=== PATIENT | female | born 1975 | race Caucasian/White ===

== ENCOUNTER 2020-07-20 19:49 | Emergency (ER) | payer BC, SELFPAY ==
--- OUTSIDE RECORDS SUMMARY | 2020-07-20 19:51 | XMS REPORT | Continuity of Care Document ---
:1975 Author Organization [facility] t Address [address] [place] [address] Dr. Stark [address] [place] [id number] Care Team Providers Name Role Phone Unavailable Unavailable Unavailable Problems This patient has no known problems. Allergies, Adverse Reactions, Alerts This patient has no known allergies or adverse reactions. Medications This patient has no known medications. Procedures This patient has no known procedures. Results This patient has no known results.
[2020-07-20] MEDS ORDERED: HYDROCODONE/APAP 5/325 MG TAB ONE (20:47)
[2020-07-20] MEDS ORDERED: TETANUS & DIPHTHERIA TOX,ADULT 0.5 ML VIAL ONE (20:48)
[2020-07-20] MEDS ORDERED: LIDOCAINE 1% MPF 30 ML VIAL ONE (20:48)
--- NOTE | 2020-07-20 21:41 | RAD REPORT ---
EXAM DESCRIPTION: RAD - Knee Left 3 View - 07/20/2020 9:29 pm CLINICAL HISTORY: SMASH INJURY Laceration, pain COMPARISON: No comparisons FINDINGS: No fracture or joint effusion. Tiny radiopaque foreign body is seen in the soft tissues an terior to the patellar tendon.
--- NOTE | 2020-07-20 21:42 | RAD REPORT ---
EXAM DESCRIPTION: RAD - Hand Right 2 View - 07/20/2020 9:29 pm CLINICAL HISTORY: SMASH INJURY Fall, pain COMPARISON: No comparisons FINDINGS: Hardware is in place spanning the fifth metacarpal. Soft tissue swelling is seen along the base of the thumb with multiple radiodensity is noted within the soft tissues, likely small foreign bodies.
--- NOTE | 2020-07-20 23:09 | EDPHYS ---
Physician Documentation [facility] Name: Tanya Stein Age: 44 yrs Sex: Female : 1975 Arrival Date: 07/20/2020 Time: 19:54 Bed 24 Private MD: ED Physician Laureano Duncan HPI: 07/20 20:48 This 44 yrs old Female presents to ER via EMS with complaints of Fall Injury. snw 20:48 Details of fall: The patient fell from an upright position, pt was walking around a snw corner at [place], there was a broken bottle of olive oil on the floor, pt slipped in the oil, left knee bent behind her at an odd angle, pt landed mostly on right hand and landed on pieces of the broken glass, punctures and lacerations to right hand. Onset: The symptoms/episode began/occurred suddenly, just prior to arrival. Associated injuries: The patient sustained as noted. Severity of symptoms: At their worst the symptoms were moderate. The patient has not experienced similar symptoms in the past. It is unknown whether or not the patient has recently seen a physician. 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 - Social history:: Smoking status: unknown. - Immunization history: Last tetanus immunization:. ROS: 20:44 Constitutional: Negative for fever, chills, and weight loss, Eyes: Negative for injury, snw pain, redness, and discharge, ENT: Negative for injury, pain, and discharge, Neck: Negative for injury, pain, and swelling, Cardiovascular: Negative for chest pain, palpitations, and edema, Respiratory: Negative for shortness of breath, cough, wheezing, and pleuritic chest pain, Abdomen/GI: Negative for abdominal pain, nausea, vomiting, diarrhea, and constipation, Back: Negative for injury and pain, : Negative for injury, bleeding, discharge, and swelling, Neuro: Negative for headache, weakness, numbness, tingling, and seizure, Psych: Negative for depression, anxiety, suicide ideation, homicidal ideation, and hallucinations. 20:44 MS/extremity: Positive for injury or acute deformity, pain, of the left knee. 20:44 Skin: Positive for laceration(s), puncture, pustules, of the heel of right hand. Exam: 20:42 Constitutional: This is a well developed, well nourished patient who is awake, alert, snw and in no acute distress. Head/Face: Normocephalic, atraumatic. Eyes: Pupils equal round and reactive to light, extra-ocular motions intact. Lids and lashes normal. Conjunctiva and sclera are non-icteric and not injected. Cornea within normal limits. Periorbital areas with no swelling, redness, or edema. ENT: Nares patent. No nasal discharge, no septal abnormalities noted. Tympanic membranes are normal and external auditory canals are clear. Oropharynx with no redness, swelling, or masses, exudates, or evidence of obstruction, uvula midline. Mucous membranes moist. Neck: Trachea midline, no thyromegaly or masses palpated, and no cervical lymphadenopathy. Supple, full range of motion without nuchal rigidity, or vertebral point tenderness. No Meningismus. Chest/axilla: Normal chest wall appearance and motion. Nontender with no deformity. No lesions are appreciated. Cardiovascular: Regular rate and rhythm with a normal S1 and S2. No gallops, murmurs, or rubs. Normal PMI, no JVD. No pulse deficits. Respiratory: Lungs have equal breath sounds bilaterally, clear to auscultation and percussion. No rales, rhonchi or wheezes noted. No increased work of breathing, no retractions or nasal flaring. Abdomen/GI: Soft, non-tender, with normal bowel sounds. No distension or tympany. No guarding or rebound. No evidence of tenderness throughout. Back: No spinal tenderness. No costovertebral tenderness. Full range of motion. Neuro: Awake and alert, GCS 15, oriented to person, place, time, and situation. Cranial nerves II-XII grossly intact. Motor strength 5/5 in all extremities. Sensory grossly intact. Cerebellar exam normal. Normal gait. Psych: Awake, alert, with orientation to person, place and time. Behavior, mood, and affect are within normal limits. 20:42 Skin: Appearance: normal except for affected area, injury, laceration(s), the wound is approximately 2 cm(s), with a depth of 2 cm(s), of the heel of right hand, puncture(s). 20:46 Musculoskeletal/extremity: Extremities: grossly normal except: noted in the left knee: snw decreased ROM, swelling, tenderness, ROM: limited active range of motion due to pain, in the left knee, Circulation is intact in all extremities. Sensation intact. Vital Signs: 19:55 BP 116 / 77; Pulse 65; Resp 16; Temp 98.0(O); Pulse Ox 100% on R/A; Weight 79.38 kg; ls4 Height 5 ft. 4 in. (162.56 cm); Pain 7/10; 23:01 BP 102 / 72; Pulse 59; Resp 16; Temp 98.4; Pulse Ox 100% on R/A; Pain 3/10; ls4 19:55 Body Mass Index 30.04 (79.38 kg, 162.56 cm) ls4 [place] Coma Score: 20:46 Eye Response: spontaneous(4). Verbal Response: oriented(5). Motor Response: obeys snw commands(6). Total: 15. Laceration: 22:22 Wound Repair of 2cm ( 0.8in ) subcutaneous laceration to right hand. Irregularly snw shaped.. Gross contamination.. Possible foreign body or glass noted.. right heel of hand with large glass fragments, palm with innumerable tiny lacerations with slivers of glass. Attempted to remove all glass post anesthesia to heel of hand with 1% lidocaine. Many glass fragments removed. X-ray repeated.. Distal neuro/vascular/tendon intact. Anesthesia: Local anesthetic administered with 5 mls of 1% lidocaine. Wound prep: Extensive cleansing with hibiclenz by nurse by pr. Skin closed with 3 4-0 Prolene using simple sutures and sterile technique. Dressed with Kerlix, non-adherent dressing. Patient tolerated well. MDM: 20:06 Patient medically screened. snw 23:11 Data reviewed: vital signs, nurses notes. Data interpreted: Pulse oximetry: on room air snw is 100 %. Interpretation: normal. Counseling: I had a detailed discussion with the patient and/or guardian regarding: the historical points, exam findings, and any diagnostic results supporting the discharge/admit diagnosis, radiology results, the need for outpatient follow up, for definitive care, to return to the emergency department if symptoms worsen or persist or if there are any questions or concerns that arise at home. Special discussion: Based on the history and exam findings, there is no indication for further emergent testing or inpatient evaluation. I discussed with the patient/guardian the need to see the orthopedic surgeon for further evaluation of the symptoms. I discussed with the patient/guardian the need to see the primary care provider for further evaluation of the symptoms. 07/20 20:24 Order name: Hand Right 2 View XRAY; Complete Time: 22:15 snw 07/20 20:24 Order name: Knee Left 3 View XRAY; Complete Time: 22:15 snw 07/20 22:12 Order name: Hand Right 2 View XRAY ls4 07/20 20:24 Order name: Suture Tray Setup; Complete Time: 20:48 snw 07/20 20:24 Order name: Wound Care: soak in hibiclens/water; Complete Time: 20:34 snw Administered Medications: 20:48 Drug: [place] 5 mg-325 mg 1 tabs Route: PO; ls4 21:10 Follow up: Response: No adverse reaction; Marked relief of symptoms ls4 21:33 Follow up: Response: No adverse reaction; Marked relief of symptoms ls4 21:19 Drug: Tetanus-Diphtheria Toxoid Adult 0.5 ml {[employer] Leader: [employer]. Exp: ls4 01/13/2023. Lot #: [id number]. } Route: IM; Site: right deltoid; 21:49 Follow up: Response: No adverse reaction ls4 21:32 Drug: Lidocaine (1 %) 1 vials {Note: PER JERRY .} Volume: 20 ml; Route: Infiltration; ls4 Disposition: 07/21 06:14 Co-signature as Attending Physician, Laureano Duncan MD I agree with the assessment and luz maria plan of care. Disposition: 07/20/20 23:09 Discharged to Home. Impression: Fall on same level from slipping, tripping and stumbling with subsequent striking against sharp object, Laceration with foreign body of right hand, Sprain of unspecified site of left knee. - Condition is Stable. - Discharge Instructions: Fall Prevention in the Home, Knee Sprain, Laceration Care, Adult, Suture Removal, Care After, Sutured Wound Care. - Prescriptions for Keflex 500 mg Oral Capsule - take 1 capsule by ORAL route every 8 hours for 10 days; 30 capsule. Tylenol- Codeine #3 300-30 mg Oral Tablet - take 2 tablets by ORAL route every 6 hours As needed; 24 tablet. - Medication Reconciliation Form, Thank You Letter, Antibiotic Education, Prescription Opioid Use form. - Follow up: Emergency Department; When: As needed; Reason: Worsening of condition. Follow up: Private Physician; When: 7 - 10 days; Reason: Recheck today's complaints, Continuance of care, Re-evaluation by your physician. Signatures: Dispatcher [employer] EDLaureano Alva MD MD cha Waters, Shelly, PREPARED FOODS SUPERVISOR-C PREPARED FOODS SUPERVISOR-Csnw Shyla Brown RN RN ls4 Corrections: (The following items were deleted from the chart) 07/20 20:48 20:42 Constitutional: This is a well developed, well nourished patient who is awake, snw alert, and in no acute distress. Head/Face: Normocephalic, atraumatic. Eyes: Pupils equal round and reactive to light, extra-ocular motions intact. Lids and lashes normal. Conjunctiva and sclera are non-icteric and not injected. Cornea within normal limits. Periorbital areas with no swelling, redness, or edema. ENT: Nares patent. No nasal discharge, no septal abnormalities noted. Tympanic membranes are normal and external auditory canals are clear. Oropharynx with no redness, swelling, or masses, exudates, or evidence of obstruction, uvula midline. Mucous membranes moist. Neck: Trachea midline, no thyromegaly or masses palpated, and no cervical lymphadenopathy. Supple, full range of motion without nuchal rigidity, or vertebral point tenderness. No Meningismus. Chest/axilla: Normal chest wall appearance and motion. Nontender with no deformity. No lesions are appreciated. Cardiovascular: Regular rate and rhythm with a normal S1 and S2. No gallops, murmurs, or rubs. Normal PMI, no JVD. No pulse deficits. Respiratory: Lungs have equal breath sounds bilaterally, clear to auscultation and percussion. No rales, rhonchi or wheezes noted. No increased work of breathing, no retractions or nasal flaring. Abdomen/GI: Soft, non-tender, with normal bowel sounds. No distension or tympany. No guarding or rebound. No evidence of tenderness throughout. Back: No spinal tenderness. No costovertebral tenderness. Full range of motion. Neuro: Awake and alert, GCS 15, oriented to person, place, time, and situation. Cranial nerves II-XII grossly intact. Motor strength 5/5 in all extremities. Sensory grossly intact. Cerebellar exam normal. Normal gait. Psych: Awake, alert, with orientation to person, place and time. Behavior, mood, and affect are within normal limits. snw 20:48 20:42 Skin: Appearance: snw snw 21:46 19:54 Immunization history Last tetanus immunization: ls4 ls4 21:46 21:44 Social history: Smoking status: unknown ls4 ls4 23:31 23:09 07/20/2020 23:09 Discharged to Home. Impression: Fall on same level from ls4 slipping, tripping and stumbling with subsequent striking against sharp object; Laceration with foreign body of right hand; Sprain of unspecified site of left knee. Condition is Stable. Forms are Medication Reconciliation Form, Thank You Letter, Antibiotic Education, Prescription Opioid Use. Follow up: Emergency Department; When: As needed; Reason: Worsening of condition. Follow up: Private Physician; When: 7 - 10 days; Reason: Recheck today's complaints, Continuance of care, Re-evaluation by your physician. snw
--- NOTE | 2020-07-20 23:09 | ER ---
Nurse's Notes [facility] Name: Tanya Stein Age: 44 yrs Sex: Female : 1975 Arrival Date: 07/20/2020 Time: 19:54 Bed 24 Private MD: Diagnosis: Fall on same level from slipping, tripping and stumbling with subsequent striking against sharp object;Laceration with foreign body of right hand;Sprain of unspecified site of left knee Presentation: 07/20 19:54 Chief complaint: Patient states: FELL AT [place] IN [place] OIL AND BROKEN GLASS. GLASS AND ls4 LACS TO RIGHT HAND AND PAIN IN LEFT KNEE. Care prior to arrival: None. Mechanism of Injury: Fall an unknown distance. 19:54 Acuity: AYDEN 3 ls4 19:54 Method Of Arrival: EMS: [facility] ls4 19:54 Coronavirus screen: At this time, the client does not indicate any symptoms associated ls4 with coronavirus-19. Ebola Screen: No symptoms or risks identified at this time. Initial Sepsis Screen: Does the patient meet any 2 criteria? No. Patient's initial sepsis screen is negative. Does the patient have a suspected source of infection? No. Patient's initial sepsis screen is negative. Risk Assessment: Do you want to hurt yourself or someone else? Patient reports no desire to harm self or others. Onset of symptoms was July 20, 2020 at 18:45. Triage Assessment: 20:29 General: Appears uncomfortable, Behavior is calm, cooperative. 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 - Social history:: Smoking status: unknown. - Immunization history: Last tetanus immunization:. Screenin:31 Abuse screen: Denies threats or abuse. Denies injuries from another. Nutritional ls4 screening: No deficits noted. Tuberculosis screening: No symptoms or risk factors identified. Fall Risk None identified. Assessment: 19:54 General: Appears uncomfortable. Pain: Complains of pain in right hand Pain currently is ls4 8 out of 10 on a pain scale. 20:33 Derm: Wound noted heel of right hand, palm of right hand and Right first web space ls4 Wound is JAGGED, GLASS PROTRUDING. Musculoskeletal: Circulation, motion, and sensation intact. Capillary refill < 3 seconds, Range of motion: intact in all extremities. 21:30 Reassessment: Patient appears in no apparent distress at this time. Patient and/or ls4 family updated on plan of care and expected duration. Pain level reassessed. Patient is alert, oriented x 3, equal unlabored respirations, skin warm/dry/pink. 23:03 Reassessment: Patient appears in no apparent distress at this time. Patient and/or ls4 family updated on plan of care and expected duration. Pain level reassessed. Patient is alert, oriented x 3, equal unlabored respirations, skin warm/dry/pink. Vital Signs: 19:55 BP 116 / 77; Pulse 65; Resp 16; Temp 98.0(O); Pulse Ox 100% on R/A; Weight 79.38 kg; ls4 Height 5 ft. 4 in. (162.56 cm); Pain 7/10; 23:01 BP 102 / 72; Pulse 59; Resp 16; Temp 98.4; Pulse Ox 100% on R/A; Pain 3/10; ls4 19:55 Body Mass Index 30.04 (79.38 kg, 162.56 cm) ls4 [place] Coma Score: 20:46 Eye Response: spontaneous(4). Verbal Response: oriented(5). Motor Response: obeys snw commands(6). Total: 15. ED Course: 19:54 Patient arrived in ED. iw 19:59 Jerry Martinez FNP-C is [facility]. snw 19:59 Laureano Duncan MD is Attending Physician. snw 20:20 Patient did not have IV access during this emergency room visit. Wound care: to ls4 laceration located on Right first web space and palm of right hand and heel of right hand was cleaned with Hibiclens, soaked in normal saline solution, Patient tolerated well. 20:26 Shyla Brown, RN is Primary Nurse. ls4 20:28 Triage completed. ls4 20:31 Arm band placed on. ls4 20:31 Patient has correct armband on for positive identification. Bed in low position. Call ls4 light in reach. Side rails up X 1. security monitor on. Pulse ox on. NIBP on. Warm blanket given. Verbal reassurance given. 21:29 Hand Right 2 View XRAY In Process Unspecified. EDMS 21:29 Knee Left 3 View XRAY In Process Unspecified. EDMS 22:50 Hand Right 2 View XRAY In Process Unspecified. EDMS 23:03 Assist provider with I \T\ D: Dressing with 4X4s, Patient tolerated Assist provider with ls4 laceration repair on palm of right hand and heel of right hand using sutures. Set up tray. Performed by Jerry MONTALVO Patient tolerated well. 23:30 Dressings: Kerlix X 1; right hand Jyoti x 1 right hand non-adherent dressing x 1 right ls4 hand triple antibiotic. Administered Medications: 20:48 Drug: [place] 5 mg-325 mg 1 tabs Route: PO; ls4 21:10 Follow up: Response: No adverse reaction; Marked relief of symptoms ls4 21:33 Follow up: Response: No adverse reaction; Marked relief of symptoms ls4 21:19 Drug: Tetanus-Diphtheria Toxoid Adult 0.5 ml {S[employer] Boss: [employer]. Exp: ls4 01/13/2023. Lot #: [id number]. } Route: IM; Site: right deltoid; 21:49 Follow up: Response: No adverse reaction ls4 21:32 Drug: Lidocaine (1 %) 1 vials {Note: PER JERRY .} Volume: 20 ml; Route: Infiltration; ls4 Outcome: 23:09 Discharge ordered by MD. pham 23:30 Discharged to home ambulatory. ls4 23:30 Condition: good 23:30 Discharge instructions given to patient, Instructed on discharge instructions, follow up and referral plans. medication usage, safety practices, Demonstrated understanding of instructions, follow-up care, medications, Prescriptions given X 2. 23:31 Patient left the ED. ls4 Signatures: Dispatcher [employer] Jerry Franz FNP-C FNP-Jaymew Norma Evans, RN RN iw Shyla Brown RN RN ls4 Corrections: (The following items were deleted from the chart) 19:54 Immunization history Last tetanus immunization: ls4 ls4 21:44 Social history: Smoking status: unknown ls4 ls4 23:15 20:20 No provider procedures requiring assistance completed. ls4 ls4
--- NOTE | 2020-07-21 08:03 | RAD REPORT ---
EXAM DESCRIPTION: RAD - Hand Right 2 View - 07/20/2020 10:50 pm CLINICAL HISTORY: SMASH INJURYsoft tissue foreign bodies COMPARISON: Hand Right 2 View dated 07/20/2020 FINDINGS: No new bone finding seen. Foreign bodies or skin contaminant snare the fifth proximal phalanx and fir st metacarpal have been removed. IMPRESSION: Skin contaminant sore foreign bodies have been removed.
== END 2020-07-20 23:31 | disposition home or self-care (01) ==
LOC: ER 19:49
PROC: 0JQJ0ZZ Repair Right Hand Subcutaneous Tissue and Fascia, Open Approach (ICD-10-PCS; principal; 2020-07-20)
DX: S61.421A Laceration with foreign body of right hand, initial encounter (principal); S83.92XA Sprain of unspecified site of left knee, initial encounter; W01.10XA Fall on same level from slipping, tripping and stumbling with subsequent striking against unspecified object, initial encounter; Y93.01 Activity, walking, marching and hiking; Y92.512 Supermarket, store or market as the place of occurrence of the external cause; Z23 Encounter for immunization
CPT/HCPCS: 90471; 90714; 99285